=== PATIENT | male | born 1965 | race African-American/Black ===

== ENCOUNTER 2019-10-18 10:39 | Inpatient (IN) | payer MEDICARE, MEDICAID, SELFPAY ==
--- NOTE | ~2019-10-18 | CT_ITS ---
EXAMINATION: CT brain wo con DATE: 10/18/2019 12:35 INDICATION: Left paresis for 4 days TECHNIQUE: Computed tomography (CT) of the head was performed without intravenous contrast. The mA wa s adjusted according to patient size. Iterative reconstruction technique was employed. Exam dose: 60 5.33 mGy-cm total exam DLP. COMPARISON: None FINDINGS: There is a large irregular area of diminished attenuation in the posterior right parietal and temporal areas. Differential diagnosis includes cerebrovascular accident within right middle cer ebral artery territory versus edema associated with an intracranial primary or metastatic malignant m ass lesion. Consider MR brain examination or repeat CT brain with intravenous contrast material. No intracranial hemorrhage is detected. No evidence of intracranial mass lesion is noted otherwise. No midline shift or mass effect. Normal ventricular size. Bilateral carotid siphon internal artery calcifications. No subdural or epidural hematoma. Approximately 9 mm mucous retention cyst or polyp of right maxillary sinus. There is patchy opacific ation of ethmoid air cells bilaterally. Minimal mucoperiosteal thickening of the sphenoid sinuses. The mastoid air cells are normally developed and aerated. No fracture or bone destruction of the cranial vault. IMPRESSION: Large irregular area of diminished attenuation in the right parietal and temporal areas; differential diagnosis includes cerebrovascular accident verus edema associated with intracranial pr imary or metastatic malignancy Dr. Ely telephoned the report to ER physician Dr. Ramirez on 10/18/2019 at 1250 hours. Reviewed, dictated and finalized at [facility]. Reviewed, dictated and finalized at location B. IMPRESSION: Large irregular area of diminished attenuation in the right pariet al and temporal areas; differential diagnosis includes cerebrovascular accident verus edema associated with intracranial primary or metastatic malignancy Dr. Ely telephoned the report to ER physician Dr. Ramirez on 10/18/2019 at 1250 h ours.
--- NOTE | ~2019-10-18 | CT_ITS ---
EXAMINATION: CTA brain EXAM DATE: 10/19/2019 19:30 INDICATION: Right MCA stroke. TECHNIQUE: Noncontrast head CT. Spiral CT angiogram cerebral arteries performed with intravenous in jection of 100 mL Omnipaque 350. Axial, coronal and sagittal images reviewed. Additional reformatted images created on dedicated 3-D workstation. The dose-length product (DLP) for this examination was 1392.85 mGy-cm. The exposure was tailored according to patient size, and iterative reconstruction (ASIR) was used as additional dose reduction technique. Correlation is made to head CT from yesterday . FINDINGS: There is mild bilateral carotid siphon arterial sclerosis without stenosis. There is no d istal carotid or vertebral basilar arterial dissection or fibromuscular dysplasia. There are no cereb ral artery aneurysms. There is symmetric cerebral artery arborization. The sagittal, transverse and s igmoid sinuses enhance normally, no venous sinus thrombosis. Internal cerebral veins also enhance nor melony. There is acute right-sided subinsular, parietal moderate-sized infarction. There is no acute intrapar enchymal hemorrhage. No evidence of intraparenchymal brain mass lesion. There is no mass effect or midline shift. There is no obstructive hydrocephalus suspected. There are no extra-axial collections . There are no calvarial acute fractures. IMPRESSION: Acute moderate sized right MCA infarction without proximal stenosis identified. Reviewed, dictated and finalized at location A.
--- NOTE | ~2019-10-18 | MR_ITS ---
EXAMINATION: MR brain/brain stem wo/w con EXAM DATE: 10/19/2019 12:43 INDICATION: Abnormal CT scan. Infarction. TECHNIQUE: Magnetic resonance imaging (MRI) of the brain/brain stem obtained without contrast. Sagit marilyn T1, axial diffusion, gradient echo (T2*), T1, T2, FLAIR sequences obtained. Patient was then inj ected with 20 cc intravenous Multihance contrast. Axial and coronal postcontrast T1 weighted sequence s obtained. There is no prior study for comparison. FINDINGS: There is moderate size acute infarction in the right parietal lobe and subinsular cortex, m iddle cerebral artery distribution. Some overlying luxury perfusion. Otherwise no areas of abnormal e nhancement. There is no acute hemorrhage seen on the T2*, a hemosiderin sensitive sequence. No intra parenchymal brain mass. The ventricles are normal in size. There are no extra-axial collections. Fl ow voids are seen in the cerebral arteries on the T2-weighted sequences consistent with their expecte d patency. The orbits are unremarkable. Soft tissue is unremarkable. Mild mucoperiosteal disease. IMPRESSION: 1. Moderate sized right parietal, subinsular acute infarction. Reviewed, dictated and finalized at location A.
--- NOTE | ~2019-10-18 | XR_ITS ---
XR chest 2V DATE: 10/18/2019 12:41 INDICATION: Syncope. Choking and coughing episode TECHNIQUE: AP and lateral views COMPARISON: None FINDINGS: There is patchy infiltrate and/or atelectasis at the lung bases, more prominent on the left . There is elevation of the left leaf of the diaphragm. Status post sternotomy. Heart size is normal. No pleural effusion or pulmonary vascular congestion or pneumothorax. IMPRESSION: Bibasilar infiltrate and/or atelectasis Elevated left diaphragm Reviewed, dictated and finalized at location B.
[2019-10-18 10:40] VITALS: BP 145/91; PULSE 57; RESP 16; TEMP 36.7; O2SAT 100
[2019-10-18 12:16] LABS: Basophils Percent Auto 0.2 % (0.2-1.2); Eosinophils Absolute Auto 0.1 K/mm3 (0-0.3); Eosinophils Percent Auto 1.6 % (0-4.4); Hematocrit 40.9 % (42.0-52.0); Hemoglobin 13.4 g/dL (14.0-18.0); Immature Granulocyte Absolute 0.01 K/mm3 (0.00-0.031); Immature Granulocyte Percent A 0.1 % (0-0.5); Lymphocytes Absolute Auto 5.52 K/mm3 (0.9-3.2); Lymphocytes Percent Auto 64.5 % (18.3-44.2); Mean Corpuscular HGB Conc 32.8 g/dl (32-36); Mean Corpuscular Hemoglobin 28.4 pg (26-34); Mean Corpuscular Volume 86.7 fl (80-100); Mean Platelet Volume 11.6 fl (7.4-10.4); Monocytes Absolute Auto 0.4 K/mm3 (0.1-0.6); Monocytes Percent Auto 4.8 % (2.6-8.5); Neutrophils Absolute Auto 2.5 K/mm3 (1.3-6.7); Neutrophils Percent Auto 28.8 % (45.5-73.1); Platelet Count Result 177 k/mm3 (150-375); Red Blood Count 4.72 M/mm3 (4.6-6.20); Red Cell Distribution Width 15.2 % (11.5-14.5); White Blood Count 8.6 K/mm3 (4.5-10.0)
[2019-10-18 12:21] LABS: Add Urine Microscopic? NO; Appearance Urine Clear (Clear); Bilirubin Urine Negative (Negative); Blood Urine Negative (Negative); Color Urine Yellow (Yellow); Glucose Urine UA Negative (Negative); Ketones Urine Negative (Negative); Leukocyte Esterase Ur Negative LEU/UL (Negative); Nitrate Urine Negative (Negative); Protein Urine Negative (Negative); Specific Grav Ur 1.016 (1.001-1.035); Urobilinogen Urine Negative mg/dL (<2.0)
--- NOTE | 2019-10-18 12:21 | ED.NEUROSD ---
HPI - Neuro Symptoms/Deficit General Chief Complaint: Neuro Symptoms/Deficit Stated Complaint: L SIDED WEAKNESS X4 DAYS Time Seen by Provider: 10/18/19 12:03 Source: patient Mode of arrival: ambulatory Limitations: no limitations History of Present Illness HPI Narrative: Pt is a 54 y/o male who presents to the ED with c/o lt sided numbness that started (4 days ago). Pt states that about 4 days ago he went into a coughing fit and choked on some food. Per spouse, she found the pt unconscious on the floor with food coming out of his mouth and he was incontinent of urine. Pt became conscious after a minute and refused to get checked out. His Sx have worsened and he thinks he had a stroke. He called his PCP and they recommended he come to the ED. Pt reports trouble with his balance and numbness to his fingertips, but he denies pain, weakness, changes in his speech, Sz-like activity, or a LASSITER. He notes he has a H/O CABG in 2003. Onset (ago): day(s) (4) Location: other (lt-sided) History of same: No Quality: numb Context: sudden onset Associated symptoms: other (numbness to fingertips, trouble with balance) Related Data Home Medications Medication Instructions Recorded Confirmed amlodipine 10/18/19 aspirin 10/18/19 atorvastatin 10/18/19 clopidogrel 10/18/19 escitalopram oxalate mg 10/18/19 isosorbide mononitrate mg PO 10/18/19 losartan 10/18/19 pantoprazole PO 10/18/19 Allergies Allergy/AdvReac Type Severity Reaction Status Date / Time ibuprofen [From Motrin] Allergy Abdominal Verified 10/18/19 11:21 Pain Review of Systems Review of Systems: All systems reviewed & are unremarkable except as noted in HPI and below Constitutional: Constitutional: Denies headache(s) Musculoskeletal: Musculoskeletal: Denies other (pain) Neurologic: Denies Abnormal speech present, Denies headache(s), Reports numbness (lt sided and fingertips), Denies seizure-like activity, Reports disequilibrium and Denies weakness PMFSH Past Medical History Medical History (Updated 10/18/19 @ 14:17 by Abdulaziz Tanner MD) CAD (coronary artery disease) Surgical History Surgical History (Updated 10/18/19 @ 13:20 by Ewa Calabrese) Hx of CABG Social History Social History (Updated 10/18/19 @ 13:20 by Ewa Calabrese) Smoking status: Never smoker Gender identity (if verbalized by the patient): Male Exam Const: General: healthy appearing, no acute distress and well developed Nutritional Appearance: well nourished Orientation/consciousness: patient oriented x3 (alert) and Other orientation findings (Alert) Limitations: no limitations HENMT: Head: normocephalic and atraumatic Ears: external ears normal General nose exam: No nasal discharge present and no epistaxis Face and sinus: face symmetric Mouth: Yes lip normal, Yes tongue normal and Yes moist mucous membranes Throat: other (No exudate, no erythema) Eyes: Conjunctivae: conjunctivae normal Sclera: sclerae normal Pupils: Equal, round and reactive pupils present EOM: EOMs intact bilaterally Neck: Neck: full ROM, no lymphadenopathy and supple Thyroid: thyroid normal Chest: Chest palpation & inspection: no tenderness Resp: Effort & Inspection: normal respiratory effort Auscultation: clear to auscultation bilaterally, no rales, no rhonchi, no wheezes and other (breath sounds equal) Cardio: Rate: regular rate Rhythm: regular rhythm Heart sounds: no gallops and no murmurs GI: Inspection: non-distended GI Palp: No abdominal tenderness and Yes Soft to palpation Auscultation: other (bowel sounds present) Back/Spine/Pelvis: Thoracic/Lumbar Spine: thoracic and lumbar spine normal to inspection Skin: General skin exam: normal color and no rashes or lesions noted Neuro: General: patient oriented x3 (alert), moves all extremities and no focal motor deficits Cranial nerves: Yes CN's II-XII intact bilaterally and Yes facial symmetry Speech: normal speech Motor
[2019-10-18 12:59] LABS: Alanine Aminotransferase 14 U/L (4-50); Albumin Level 4.2 g/dL (3.5-5.1); Alkaline Phosphatase 104 U/L (38-126); Aspartate Amino Transferase 25 U/L (17-59); Bilirubin,Total 0.4 mg/dL (0.2-1.3); Blood Urea Nitrogen 10 mg/dL (9-20); Calcium 9.1 mg/dL (8.4-10.2); Carbon Dioxide 28 mmol/L (22-30); Chloride 105 mmol/L (98-107); Estimated CRCL calculation 80 ml/min; Estimated Glomerular Filt Rate > 60; Glucose 85 mg/dL (75-110); Potassium 4.1 mmol/L (3.4-5.0); Sodium 137 mmol/L (137-145)
[2019-10-18 13:11] LABS: Troponin I < 0.012 ng/mL (0.000-0.034)
--- NOTE | 2019-10-18 14:27 | ECG_ITS ---
Measurements Intervals [place] Rate: 51 P: 52 WI: 151 QRS: 29 QRSD: 110 T: 63 QT: 467 QTc: 432 Interpretive Statements SINUS BRADYCARDIA EARLY PRECORDIAL R/S TRANSITION BORDERLINE ECG Electronically Signed On 10-18-2019 14:50:31 CDT by Orlando Fu D.O.
[2019-10-18 15:00] VITALS: BP 131/86; PULSE 56; RESP 18; TEMP 36.7; O2SAT 100
[2019-10-18] MEDS: LACTATED RINGERS 1,000 ML 80 ML IV CONT (15:30)
--- NOTE | 2019-10-18 15:40 | ADMGEN ---
This patient, Mack Garcia, was admitted to [facility] Surg Room 312-01. Patient/family oriented to hospital policies and general routines including ID bracelet, bed and alarms, visiting hours, pain management, procedures, bathroom and other care routines, personal items, smoking policy, room service/diet, and visiting hours. Valuables list has been completed. Information on how to activate the Rapid Response Team has been discussed. Patient/Family are encouraged to report perceived risks to care and to ask questions if they do not understand what they are told or what they should do.
--- NOTE | 2019-10-18 20:27 | PM.IMHP ---
H&P: HPI History of Present Illness Chief complaint: left side paresthesias/ cva Narrative: This is a pleasant 54 year old male with known history of CAD+ s/p CABG x 4 who presented to the hospital with a complaint of numbness and weakness of his left upper/lower extremity that started 4 days ago. The patient was eating a sandwich night and began to choke on it. His fiance found him slumped over, diaphoretic, regurtitating his food and having difficulty breathing. The whole episode lasted less than 1 minute in duration and the patient immediately experienced weakness and numbness of both is left upper/lower extremity. For the next 2 days the patient was hobbling around and states that his strength finally did return to his left side. Initially he didn't want to come to the hospital because he didn't want to be exposed to any Covid-19 patients. He denies any further difficulty swallowing since then. He also denies any seizure like activity, fever, cough, neck stiffness, blurry vision, double vision, shortness of breath, cough, chest pain, abdominal pain, dysuria, hematuria, diarrhea or rectal bleeding. The patient's numbness has persisted and he called his PCP today that urged him to come to the ER. Tonight the patient still has left sided upper/lower ext numbness. He no longer has any motor weakness. The patient's CT brain demonstrated a large irregular area of diminished attenuation in the right parietal and temporal areas. Neurology has asked that we admit the patient for workup and they will consult on the case. Review of Systems Review of Systems: All systems reviewed & are unremarkable except as noted in HPI and below PMFSH Past Medical History Medical History (Updated 10/18/19 @ 20:38 by Miguel Tobin MD) CAD (coronary artery disease) HTN (hypertension) with goal to be determined Surgical History Surgical History Hx of CABG Family History Family History (Updated 10/19/19 @ 03:19 by Miguel Tobin MD) Mother Acute myocardial infarction Social History Social History Smoking status: Never smoker Alcohol intake: current Drinks per week: 2 Substance use: current Substance use type: marijuana Gender identity (if verbalized by the patient): Male Spiritual care concerns: No Agree to blood products: Yes Meds Home Medications and Allergies Home Medications Medication Instructions Recorded Confirmed Type amlodipine [Norvasc] 10 mg PO BID 10/18/19 10/18/19 History aspirin [Aspirin Childrens] 81 mg PO DAILY 10/18/19 10/18/19 History atorvastatin [Lipitor] 80 mg PO HS 10/18/19 10/18/19 History clopidogrel [Plavix] 75 mg PO DAILY 10/18/19 10/18/19 History escitalopram oxalate [Lexapro] 20 mg PO DAILY 10/18/19 10/18/19 History isosorbide mononitrate 60 mg PO DAILY 10/18/19 10/18/19 History losartan [Cozaar] 50 mg PO DAILY 10/18/19 10/18/19 History niacin 1,000 mg PO HS 10/18/19 10/18/19 History pantoprazole [Protonix] 20 mg PO DAILY 10/18/19 10/18/19 History ranolazine [Ranexa] 1,000 mg PO DAILY 10/18/19 10/18/19 History sucralfate [Carafate] 1 g PO TID 10/18/19 10/18/19 History Allergies Allergy/AdvReac Type Severity Reaction Status Date / Time ibuprofen [From Motrin] Allergy Abdominal Verified 10/18/19 11:21 Pain Vital Signs Vital Signs - 24 hr 10/18/19 10:40 10/18/19 15:00 Temperature 36.7 C 36.7 C Pulse Rate 57 L 56 L Respiratory Rate 16 18 Blood Pressure 145/91 H 131/86 Pulse Oximetry 100 100 Exam Const: General: cooperative, healthy appearing, no acute distress, alert and awake Nutritional Appearance: well nourished Orientation/consciousness: patient oriented x3 HENMT: Head: normal to inspection General nose exam: Normal external nose present Face and sinus: normal facial exam Mouth: Yes Normal oral and palatal mucosa present and Yes maulik
[2019-10-18] MEDS: ASPIRIN 325 MG ENTERIC TABLET PO (21:13)
[2019-10-18] MEDS: NIACIN SA 500 MG TABLET 1000 MG PO (21:13)
[2019-10-18] MEDS: ATORVASTATIN 40 MG TABLET 80 MG PO (21:13)
[2019-10-18] MEDS: AMLODIPINE BESYLATE 5 MG TABLET 10 MG PO (21:14)
[2019-10-18 21:52] LABS: Partial Thromboplastin Time 27.2 SECONDS (22.3-36.8)
[2019-10-18 22:00] VITALS: BP 117/80; PULSE 62; RESP 18; TEMP 36.8; O2SAT 99
[2019-10-19] VITALS (8 sets, daily range): BP systolic 109–137; BP diastolic 60–78; PULSE 54–75; RESP 18; TEMP 36.6–36.8; O2SAT 99–100
--- NOTE | 2019-10-19 | ECHO_ITS ---
Patient Info Name: Mack Garcia Age: 54 years : 1965 Gender: Male Ht: 72 in Wt: 260 lbs BSA: 2.49 m2 HR: 58 bpm BP: 137 / 78 mmHg Heart Rhythm: Sinus Rhythm Technical Quality: Good Exam Date: 10/19/2019 10:21 AM Exam Location: [facility] Patient Status: Inpatient Admit Date: 10/18/2019 Staff Ordering Physician: Miguel Tobin MD Geography Instructor: Chema Cagle RDCS Attending Provider: Adrian Pierce MD Referring Physician: Crista KNOWLES; Exam Type: CA echo dop bubble study w con Study Info Indications 436.0 - CVA Complete two-dimensional, color flow and Doppler transthoracic echocardiogram is performed with contrast to opacify the left ventrical and to improve the deliniation of the left ventrical endocarial boarders. Agitated saline study was performed. Contrast/Agitated Saline Contrast/Ag. Saline: Agitated Saline Amount: 18.00 ml Administered By: Preeti Dudley RN Existing IV Access: Yes Contrast/Ag. Saline: Definity Amount: 2.00 ml Administered By: Preeti Dudley RN Existing IV Access: Yes History/Risk Factors Left sided weakness and numbness; CAD s/p 4vCABG '04, HTN. Summary 1. Left ventricular chamber size and diastolic function are normal with moderate concentric LVH, and with an estimated ejection fraction of 60-65% visually.There is good global left ventricular function with questionable basal inferoseptal hypokinesis. 2. Left atrial chamber dimension is mildly enlarged. 3. Calcified aortic root. 4. No significant valve disease. 5. Technically difficult study, definity echo contrast used. 6. Normal sinus rhythm. 7. No evidence of intracardiac shunt with normal respiration and Valsalva, with bubble study. Left Ventricle Left ventricular chamber dimension is normal. Left ventricular systolic function is normal, estimated at 60-65%. There is moderately increased left ventricular wall thickness. Left ventricular septal wall motion is normal. The left ventricular diastolic function is normal. Left ventricular chamber size and diastolic function are normal with moderate concentric LVH, and with an estimated ejection fraction of 60-65% visually.There is good global left ventricular function with questionable basal inferoseptal hypokinesis. Right Ventricle Right ventricular chamber dimension is normal. Right ventricular systolic function is normal. Left Atria Left atrial chamber dimension is mildly enlarged. Right Atria Right atrial chamber dimension is normal. Atrial Septum Interatrial septum not well visualized by agitated saline imaging. Aortic Valve The aortic valve is trileaflet. There is no aortic valve sclerosis. There is no aortic valve stenosis. There is no aortic valve regurgitation. Pulmonic Valve The pulmonic valve is normal. There is no pulmonic valve stenosis. There is no pulmonic regurgitation. Mitral Valve The mitral valve has normal leaflets. There is no mitral valve stenosis. There is no mitral valve regurgitation. Tricuspid Valve The tricuspid valve leaflets are normal. There is no significant tricuspid valve stenosis. There is trace tricuspid valve regurgitation. No pulmonary hypertension, estimated pulmonary arterial systolic pressure is Empty. Pericardium/Pleural The pericardium appears normal. There is no pericardial effusion. Inferior Vena Cava
[2019-10-19 06:28] LABS: Blood Urea Nitrogen 9 mg/dL (9-20); Calcium 9.2 mg/dL (8.4-10.2); Carbon Dioxide 28 mmol/L (22-30); Chloride 106 mmol/L (98-107); Cholesterol 121 mg/dL (0-200); Estimated CRCL calculation 91 ml/min; Estimated Glomerular Filt Rate > 60; Glucose 99 mg/dL (75-110); HDL Direct 54 mg/dL; Potassium 4.2 mmol/L (3.4-5.0); Sodium 137 mmol/L (137-145); Triglycerides 61 mg/dL (<150)
[2019-10-19 06:39] LABS: LDL Cholesterol Direct 46 mg/dL
[2019-10-19] MEDS: PANTOPRAZOLE SOD SESQUIHYDRATE 20 MG TAB PO (08:48)
[2019-10-19] MEDS: LOSARTAN POTASSIUM 50 MG TABLET PO (08:48)
[2019-10-19] MEDS: RANOLAZINE 500 MG TAB.ER.12H 1000 MG PO (08:48)
[2019-10-19] MEDS: ISOSORBIDE MONONITRATE 60 MG TAB.ER.24H PO (08:48)
[2019-10-19] MEDS: SUCRALFATE 1 GM TABLET PO ×3 (08:48→20:14)
[2019-10-19] MEDS: AMLODIPINE BESYLATE 5 MG TABLET 10 MG PO ×2 (08:48→20:14)
[2019-10-19] MEDS: CLOPIDOGREL BISULFATE 75 MG TABLET PO (08:48)
[2019-10-19] MEDS: ASPIRIN 81 MG CHEWABLE TABLET PO (09:49)
--- NOTE | 2019-10-19 10:32 | PCSTNOTE ---
Please refer to the Bedside Swallow Evaluation in the EMR. Please note, silent aspiration cannot be ruled out at bedside.
[2019-10-19] MEDS: PERFLUTREN LIPID MICROSPHERES 1.5 ML VIAL DILUTED TO 10 ML TOTAL VOLUME IV PUSH (11:42)
--- NOTE | 2019-10-19 13:01 | CONS_ITS ---
DATE OF CONSULTATION: 10/18/2019 HISTORY OF PRESENT ILLNESS: A 54-year-old right-handed male has been admitted to [facility] through the emergency room for a complaint of left-sided paresthesias in addition to a history of coronary artery disease, for which, the patient has undergone CABG x4. As per the information available, he was eating a sandwich night and began to choke on it. His fiancee found him slumped over, diaphoretic, regurgitating his food, and having difficulties in breathing. The whole episode lasted for less than a minute in duration. He immediately felt weakness and numbness of both his left upper and lower extremities. Over the next 48 hours, he was hobbling around, and his strength finally did return to his left side. He gave no history of seizures, generalized symptomatology with vomiting, diarrhea, or dysuria. He called his primary care physician on the day he came to the emergency room, as he was still experiencing numbness of the left upper and left lower extremities, though without weakness, and today, when I interviewed, he said that the numbness has also gone. He does have an ongoing history of: 1. Coronary artery disease. 2. Hypertension. 3. History of CABG. SOCIAL HISTORY: Never smoking, and drinking 2 drinks per week along with marijuana. MEDICATIONS: He has been takin. Amlodipine 10 mg twice a day. 2. Aspirin 81 mg daily. 3. Atorvastatin 80 h.s. 4. Clopidogrel 75 mg daily. 5. Escitalopram 20 mg daily. 6. Isosorbide 60 daily. 7. Losartan 50 daily. 8. Niacin 1,000 mg h.s. 9. Pantoprazole 20 mg daily. 10. Ranolazine 1,000 mg daily. 11. Sucralfate 1 g 3 times a day. ALLERGIES: HE IS ALLERGIC TO IBUPROFEN. PHYSICAL EXAMINATION: VITAL SIGNS: Evaluation up until now revealed him to be afebrile with pulse 57, respirations 16, and blood pressure 145/91. HEAD: Normocephalic with no cranial bruit. EAR, NOSE, AND THROAT: Normal. NECK: Supple with no cervical bruit. No thyromegaly. No lymphadenopathy. HEART: Regular with no murmur. LUNGS: Clear. ABDOMEN: Soft. NEUROLOGICAL: He is awake, alert, and oriented x3. Speech is not dysphasic, not dysarthric, not dysphonic. Pupils are round and regular. Ulrich of vision are full. Extraocular movements are full. Face is symmetrical. Tongue midline. Motor examination revealed him to have normal strength and tone. Reflexes are 1+ at the biceps, triceps, knees, and ankles. Plantars are downgoing. LABORATORY STUDIES: Evaluation up until now revealed CBC without leukocytosis, hemoglobin 13.4, platelet count 177. Basic metabolic panel is normal. Troponin less than 0.012. Hepatic enzymes are normal. UA is normal. CT of the head is negative. Considering his complaint of numbness, even though the symptomatology has resolved, he is being sent for an MRI to document any subcortical abnormality. He was not a candidate for tPA, which was not given in the emergency room because of time frame, and in the mean time, he will continue his medication as such, which include the aspirin 81 mg daily. PANTERA MUÑOZ M.D. ENGINEER STEAM ENGINEER [employer] D [place]: [place]
[2019-10-19] MEDS: ATORVASTATIN 40 MG TABLET 80 MG PO (20:14)
[2019-10-19] MEDS: NIACIN SA 500 MG TABLET 1000 MG PO (20:14)
[2019-10-20] VITALS: PULSE 67
[2019-10-20 04:00] VITALS: PULSE 73
[2019-10-20 05:57] LABS: Hemoglobin 13.7 g/dL (14.0-18.0); Mean Corpuscular HGB Conc 32.6 g/dl (32-36); Mean Corpuscular Hemoglobin 28.1 pg (26-34); Mean Corpuscular Volume 86.1 fl (80-100); Mean Platelet Volume 10.5 fl (7.4-10.4); Platelet Count Result 150 k/mm3 (150-375); Red Blood Count 4.88 M/mm3 (4.6-6.20); Red Cell Distribution Width 14.9 % (11.5-14.5); White Blood Count 8.1 K/mm3 (4.5-10.0)
[2019-10-20 06:00] VITALS: BP 106/60; PULSE 58; RESP 18; TEMP 36.6; O2SAT 100
[2019-10-20 06:14] LABS: Blood Urea Nitrogen 9 mg/dL (9-20); Calcium 9.3 mg/dL (8.4-10.2); Carbon Dioxide 26 mmol/L (22-30); Chloride 104 mmol/L (98-107); Estimated CRCL calculation 84 ml/min; Estimated Glomerular Filt Rate > 60; Glucose 94 mg/dL (75-110); Potassium 3.9 mmol/L (3.4-5.0); Sodium 138 mmol/L (137-145)
[2019-10-20 08:00] VITALS: PULSE 61
[2019-10-20] MEDS: CLOPIDOGREL BISULFATE 75 MG TABLET PO (08:56)
[2019-10-20] MEDS: ASPIRIN 81 MG CHEWABLE TABLET PO (08:56)
[2019-10-20] MEDS: SUCRALFATE 1 GM TABLET PO ×2 (08:57→12:53)
[2019-10-20] MEDS: PANTOPRAZOLE SOD SESQUIHYDRATE 20 MG TAB PO (08:57)
[2019-10-20] MEDS: AMLODIPINE BESYLATE 5 MG TABLET 10 MG PO (08:57)
[2019-10-20] MEDS: LOSARTAN POTASSIUM 50 MG TABLET PO (08:58)
[2019-10-20] MEDS: ISOSORBIDE MONONITRATE 60 MG TAB.ER.24H PO (08:58)
[2019-10-20] MEDS: RANOLAZINE 500 MG TAB.ER.12H 1000 MG PO (08:58)
--- NOTE | 2019-10-20 09:39 | WPDNEUROPN ---
Progress Note: A&P Assessment and Plan (1) GERD (gastroesophageal reflux disease): Qualifiers: Esophagitis presence: esophagitis presence not specified Qualified Code(s): K21.9 - Gastro-esophageal reflux disease without esophagitis Code(s): K21.9 - Gastro-esophageal reflux disease without esophagitis Status: Chronic (2) Hyperlipidemia: Qualifiers: Hyperlipidemia type: unspecified Qualified Code(s): E78.5 - Hyperlipidemia, unspecified Code(s): E78.5 - Hyperlipidemia, unspecified Status: Chronic (3) Normocytic anemia: Code(s): D64.9 - Anemia, unspecified Status: Acute (4) HTN (hypertension) with goal to be determined: Code(s): I10 - Essential (primary) hypertension Status: Chronic (5) CAD (coronary artery disease): Qualifiers: Coronary Disease-Associated Artery/Lesion type: bypass graft [place] vs. transplanted heart: [place] heart Associated angina: without angina Qualified Code(s): I25.810 - Atherosclerosis of coronary artery bypass graft(s) without angina pectoris Code(s): I25.10 - Atherosclerotic heart disease of [place] coronary artery without angina pectoris Status: Chronic (6) Left sided numbness: Code(s): R20.0 - Anesthesia of skin Status: Acute (7) Cerebrovascular accident: Code(s): I63.9 - Cerebral infarction, unspecified Status: Acute Additional Plan abnormal CTA with right sided stroke no vascular blockage Review of Systems Review of Systems: All systems reviewed & are unremarkable except as noted in HPI and below Exam Const: General: no acute distress Nutritional Appearance: average body habitus Orientation/consciousness: patient oriented x3 Eyes: General: appearance normal, both eyes and all related structures Alignment and Position: alignment normal Eyelids: eyelids normal Sclera: sclerae normal Cornea: corneas normal Pupils: Equal, round and reactive pupils present Direct Ophthalmoscopy: normal light reflex Neck: Neck: full ROM Resp: Effort & Inspection: normal respiratory effort Auscultation: clear to auscultation bilaterally Cardio: Rate: regular rate Rhythm: regular rhythm GI: Auscultation: normal bowel sounds Neuro: General: patient oriented x3 and moves all extremities Cranial nerves: Yes CN's II-XII intact bilaterally, Yes Equal, round and reactive pupils present, Yes Bilaterally intact EOM present, Yes Nystagmus not present, Yes Normal facial strength present, Yes Midline tongue present, Yes Symmetric palate elevation present, Yes Normal hearing present, Yes hard of hearing and Yes Ability to bilaterally rotate head present Cognition (Neuro): normal cognition Deep tendon reflexes (DTR's): Right triceps reflex intensity grade: 1+, Left triceps reflex intensity grade: 2+, Rt Biceps (C5, C6): 1+, Left biceps reflex intensity grade: 2+, Right brachioradialis reflex intensity grade: 1+, Left brachioradialis reflex intensity grade: 2+, Right patellar reflex intensity grade: 1+, Left patellar reflex intensity grade: 2+, Right ankle reflex intensity grade: 1+ and Left ankle reflex intensity grade: 2+ Objective Data Vital Signs Vital Signs: Vital Signs - 24 hr 10/19/19 14:00 10/19/19 16:00 10/19/19 20:00 Temperature 36.8 C Pulse Rate 72 75 58 L Respiratory Rate 18 Blood Pressure 117/62 Pulse Oximetry 99 10/19/19 22:00 10/20/19 00:00 10/20/19 04:00 Temperature 36.6 C Pulse Rate 63 67 73 Respiratory Rate 18 Blood Pressure 109/60 Pulse Oximetry 100 10/20/19 06:00 10/20/19 08:00 Temperature 36.6 C Pulse Rate 58 L 61 Respiratory Rate 18 Blood Pressure 106/60 Pulse Oximetry 100 Intake/Output Intake/Output: Intake & Output 10/17/19 10/18/19 10/19/19 10/20/19 23:59 23:59 23:59 23:59 Intake Total 670 2062 240 Output Total 300 1200 600 Balance 370 862 -360 Meds/Results Medications: Active Medicatio
--- NOTE | 2019-10-20 10:00 | P.CDI_ITS ---
CDI Query Clarification Request - Brain MRI impression: Moderate sized right parietal, subinsular acute infarction - Dr Frank has documented CVA - Left sided numbness has been documented Please clarify if there is a corresponding diagnosis for symptom of numbness:' * Left hemiparesis
--- NOTE | 2019-10-20 12:17 | PM.DS ---
DS: Diagnosis Admitting Diagnosis Admitting Diagnosis: Cerebral infarction, unspecified Discharge Diagnosis (1) Left sided numbness: Code(s): R20.0 - Anesthesia of skin Status: Acute Assessment and Plan: r/o Acute CVA - The patient is clearly not a candidate for tPA therapy given his symptoms started 4 days ago. The patient has been admitted for workup at the request of Neurology - Neurochecks, Telemetry. ASA therapy, Statin therapy, Monitor blood pressure. Continue home antihypertensives. Echocardiogram, TSH w/ reflex T4, Lipid panel, MRI in am. Neurology has been consulted. Awaiting Neurology recommendations. (2) CAD (coronary artery disease): Qualifiers: Coronary Disease-Associated Artery/Lesion type: bypass graft [place] vs. transplanted heart: [place] heart Associated angina: without angina Qualified Code(s): I25.810 - Atherosclerosis of coronary artery bypass graft(s) without angina pectoris Code(s): I25.10 - Atherosclerotic heart disease of [place] coronary artery without angina pectoris Status: Chronic Assessment and Plan: Stable. No chest pain. Continue plavix and ASA thearpy. (3) HTN (hypertension) with goal to be determined: Code(s): I10 - Essential (primary) hypertension Status: Chronic Assessment and Plan: Stable. monitor blood pressure. Continue amlodipine, Losartan. (4) Normocytic anemia: Code(s): D64.9 - Anemia, unspecified Status: Acute Assessment and Plan: Acute vs. Chronic? No signs of acute blood loss. Monitor H/H, transfuse prn. (5) Hyperlipidemia: Qualifiers: Hyperlipidemia type: unspecified Qualified Code(s): E78.5 - Hyperlipidemia, unspecified Code(s): E78.5 - Hyperlipidemia, unspecified Status: Chronic Assessment and Plan: Continue niacin therapy. (6) GERD (gastroesophageal reflux disease): Qualifiers: Esophagitis presence: esophagitis presence not specified Qualified Code(s): K21.9 - Gastro-esophageal reflux disease without esophagitis Code(s): K21.9 - Gastro-esophageal reflux disease without esophagitis Status: Chronic Assessment and Plan: Continue PPI thearpy. DS: Summary Hospital Course Reason for hospitalization: This is a pleasant 54 year old male with known history of CAD+ s/p CABG x 4 who presented to the hospital with a complaint of numbness and weakness of his left upper/lower extremity that started 4 days ago. The patient was eating a sandwich night and began to choke on it. His fiance found him slumped over, diaphoretic, regurtitating his food and having difficulty breathing. The whole episode lasted less than 1 minute in duration and the patient immediately experienced weakness and numbness of both is left upper/lower extremity. For the next 2 days the patient was hobbling around and states that his strength finally did return to his left side. Initially he didn't want to come to the hospital because he didn't want to be exposed to any Covid-19 patients. He denies any further difficulty swallowing since then. He also denies any seizure like activity, fever, cough, neck stiffness, blurry vision, double vision, shortness of breath, cough, chest pain, abdominal pain, dysuria, hematuria, diarrhea or rectal bleeding. The patient's numbness has persisted and he called his PCP today that urged him to come to the ER. Tonight the patient still has left sided upper/lower ext numbness. He no longer has any motor weakness. The patient's CT brain demonstrated a large irregular area of diminished attenuation in the right parietal and temporal areas. Neurology has asked that we admit the patient for workup and they will consult on the case. Hospital Course: r/o Acute CVA - The patient is clearly not a candidate for tPA therapy given his symptoms started 4 days ago. The patient has been admitted for workup at the request of Neurolog
--- NOTE | 2019-11-21 09:47 | PM.IMPN ---
Progress Note: A&P Assessment and Plan (1) Cerebrovascular accident: Code(s): I63.9 - Cerebral infarction, unspecified Status: Acute Assessment and Plan: 10/19/2019 Patient is a 54 year male with history of coronary artery disease 2 days prior to coming to emergency depart in an episode with difficulty swallowing and subsequently he developed lower extremity weakness, continue to wobble and his house did not get to emergency department because was scared of exposed to COVID-19, finally called his primary care doctor was asked come to ER, MRI of the brain showed acute infarct however was too late for any tPA treatment, patient remained clinically stable will be seen by neurologist further recommendation to follow (2) CAD (coronary artery disease): Qualifiers: Coronary Disease-Associated Artery/Lesion type: bypass graft [place] vs. transplanted heart: [place] heart Associated angina: without angina Qualified Code(s): I25.810 - Atherosclerosis of coronary artery bypass graft(s) without angina pectoris Code(s): I25.10 - Atherosclerotic heart disease of [place] coronary artery without angina pectoris Status: Chronic Assessment and Plan: Patient with history of coronary artery disease patient is clinically stable (3) HTN (hypertension) with goal to be determined: Code(s): I10 - Essential (primary) hypertension Status: Chronic Assessment and Plan: Patient clinically stable Subjective Date/time seen: 10/19/2019 Patient is a 54 year male with history of coronary artery disease 2 days prior to coming to emergency depart in an episode with difficulty swallowing and subsequently he developed lower extremity weakness, continue to wobble and his house did not get to emergency department because was scared of exposed to COVID-19, finally called his primary care doctor was asked come to ER, MRI of the brain showed acute infarct however was too late for any tPA treatment, patient remained clinically stable will be seen by neurologist further recommendation to follow Review of Systems Review of Systems: All systems reviewed & are unremarkable except as noted in HPI and below Exam Const: General: comfortable and no acute distress HENMT: General nose exam: Normal nares present Mouth: Yes moist mucous membranes Eyes: General: appearance normal, both eyes and all related structures Sclera: sclerae normal Neck: Neck: supple Resp: Effort & Inspection: normal respiratory effort Auscultation: clear to auscultation bilaterally Cardio: Rate: regular rate Rhythm: regular rhythm GI: Auscultation: normal bowel sounds Neuro: Speech: normal speech Sensory Exam: normal sensation Other: No obvious clinical deficient Extrem: General: normal to inspection Psych: Mental Status: mental status grossly normal Affect: normal affect Objective Data Meds/Results Radiology Results: ITS Impressions Head CT 10/18/19 12:37 IMPRESSION: Large irregular area of diminished attenuation in the right parietal and temporal areas; differential diagnosis includes cerebrovascular accident verus edema associated with intracranial primary or metastatic malignancy Dr. Ely telephoned the report to ER physician Dr. Ramirez on 10/18/2019 at 1250 hours. Chest X-Ray 10/18/19 12:52 IMPRESSION: Bibasilar infiltrate and/or atelectasis Elevated left diaphragm Brain MRI 10/19/19 15:10 IMPRESSION: 1. Moderate sized right parietal, subinsular acute infarction. CT Brain Angiography 10/19/19 19:34 IMPRESSION: Acute moderate sized right MCA infarction without proximal stenosis identified. Quality VTE Prophylaxis VTE prophylaxis: mechanical ordered
== END 2019-10-20 13:17 | disposition home or self-care (01) | DRG 65 ==
LOC: ANHED 14:17 → ANH3MEDSUR 14:47
PROVIDERS: Family Medicine; Admitting Provider Internal Medicine; Emergency Provider Emergency Medicine; Visit Provider Family Medicine
DX: I63.9 Cerebral infarction, unspecified (principal); G81.91 Hemiplegia, unspecified affecting right dominant side; I25.810 Atherosclerosis of coronary artery bypass graft(s) without angina pectoris; R20.0 Anesthesia of skin; I10 Essential (primary) hypertension; D64.9 Anemia, unspecified; E78.5 Hyperlipidemia, unspecified; K21.9 Gastro-esophageal reflux disease without esophagitis; Z95.1 Presence of aortocoronary bypass graft; Z28.21 Immunization not carried out because of patient refusal; Z79.82 Long term (current) use of aspirin
CPT/HCPCS: 36415; 70450; 70496; 70553; 71046; 80048; 80053; 80061; 81003; 84443; 84484; 85025; 85027; 85730; 92610; 93005; 96375; 97161; 97165; 99285; A9270; A9577; C8929; J7120; Q9957; Q9967